=== PATIENT | female | born 1960 | race Two or more races ===

== ENCOUNTER → 2019-04-12 | Outpatient (REF) | payer BC | LOC: M SFHCWAGY 13:48 | PROVIDERS: ATTEND Family Medicine | DX: Z12.4 Encounter for screening for malignant neoplasm of cervix (principal) ==

== ENCOUNTER → 2019-04-12 | Outpatient (CLI) | payer BC ==
--- NOTE | 2019-04-18 15:52 | REPMRS ---
Patient History The patient states she has not had a clinical breast exam in over a year. Patient is postmenopausal. Family history of colorectal cancer at age 60 in father. No Hormone Replacement Therapy 3D TOMOSYNTHESIS WAS PERFORMED. [facility] lifetime risk for breast cancer is 8.7%. Digital Woman Screen Mammo: April 12, 2019 - Exam #: [id number] Bilateral CC and MLO view(s) were taken. Technologist: Karen Gandara, Technologist Prior study comparison: November 08, 2017, bilateral digital mammo screening bilat, performed at [facility]. FINDINGS: There are scattered fibroglandular densities. There has been no change in the appearance of the mammogram from the prior studies. There is a mild amount of residual fibroglandular tissue which is fairly symmetric. There is no interval development of dominant mass, architectural distortion, or clustered microcalcification suggestive of malignancy. Assessment: BI-RADS/ACR category 1 mammogram. Negative Mammogram. Recommendation Routine screening mammogram in 1 year (for women over age 40). This mammogram was interpreted with the aid of an FDA-approved computer-aided dectection system. Electronically Signed By: Luis Angel Hannah MD 04/18/19 1775
== END ==
LOC: M WHC 13:17
PROVIDERS: ATTEND Family Medicine
DX: Z12.31 Encounter for screening mammogram for malignant neoplasm of breast (principal); Z78.0 Asymptomatic menopausal state

== ENCOUNTER → 2019-04-22 | Outpatient (CLI) | payer BC ==
--- NOTE | 2019-04-22 11:31 | REP ---
Clinical: Left ovarian cyst. Technique: Transabdominal pelvic ultrasound followed by transvaginal examination for better evaluation of the endometrium and adnexa with color Doppler evaluation of the ovaries. Comparison: None. Findings: Bladder is normal and measures 11.1 x 7.1 x 9.4 cm. Normal anteverted uterus measures 6.7 x 2.5 x 4.5 cm. Endometrial complex measures 2.1 mm thickness. Right ovary is not visualized. Left ovary is normal in appearance and vascularity without torsion measuring 2.8 x 2.4 x 3.2 cm (RI 0.70) and includes 2.7 x 2.0 x 1.5 cm hypoechoic lesion suggesting cyst. Impression: 1. 2.7 cm hypoechoic lesion within the left ovary may represent complex/hemorrhagic cyst. Consider reevaluation in 4-6 weeks to evaluate for resolution. Electronically Signed by Simeon Nieto MD 04/22/2019 11:23 A
== END ==
LOC: M RAD 09:56
PROVIDERS: ATTEND Family Medicine
DX: N83.202 Unspecified ovarian cyst, left side (principal); N85.4 Malposition of uterus

== ENCOUNTER → 2020-05-26 | Outpatient (REF) | payer BC ==
[2020-05-26 15:21] LABS: HEMATOCRIT 46.7 % (36.0-47.0); HEMOGLOBIN 15.1 g/dl (12.0-15.5); MEAN CORPUSCULAR HGB CONC 32.3 g/dl (32.0-36.5); MEAN CORPUSCULAR VOLUME 83.5 fl (80.0-96.0); PLATELET COUNT, AUTOMATED 312 10^3/uL (150-450); RED BLOOD COUNT 5.59 10^6/uL (4.00-5.40); WHITE BLOOD COUNT 9.1 10^3/uL (4.0-10.0)
[2020-05-26 16:19] LABS: ALBUMIN 3.6 GM/DL (3.2-5.2); ALT/SGPT 44 U/L (12-78); BILIRUBIN,TOTAL 0.5 MG/DL (0.2-1.0); BLOOD UREA NITROGEN 11 MG/DL (7-18); CALCIUM LEVEL 9.2 MG/DL (8.8-10.2); CARBON DIOXIDE LEVEL 27 MEQ/L (21-32); CHLORIDE LEVEL 107 MEQ/L (98-107); CHOLESTEROL LEVEL 211 MG/DL (<200); CHOLESTEROL RISK RATIO 4.489 (<5); CREATININE FOR GFR 0.65 MG/DL (0.55-1.30); GLOMERULAR FILTRATION RATE > 60.0 (>45); GLUCOSE, FASTING 82 MG/DL (70-100); HDL CHOLESTEROL 47 MG/DL (>40); LDL CHOLESTEROL 113 MG/DL (<100); NON-HDL-C 164 MG/DL; SODIUM LEVEL 140 MEQ/L (136-145); TOTAL 25(OH) VITAMIN D 23.6 NG/ML (30.0-100.0); TOTAL PROTEIN 7.8 GM/DL (6.4-8.2); TRIGLYCERIDES LEVEL 254 MG/DL (<150)
[2020-05-26 16:25] LABS: MAU/CREAT RATIO 30.6 MCG/MG (0.0-30.0)
== END ==
LOC: M SFHCPLAZ 14:14
PROVIDERS: ATTEND Physician Assistant
DX: Z00.00 Encounter for general adult medical examination without abnormal findings (principal); I11.9 Hypertensive heart disease without heart failure; Z13.29 Encounter for screening for other suspected endocrine disorder; R73.01 Impaired fasting glucose; E78.2 Mixed hyperlipidemia; E55.9 Vitamin D deficiency, unspecified

== ENCOUNTER → 2020-08-31 | Outpatient (CLI) | payer BC ==
--- NOTE | 2020-08-31 11:51 | REPPI ---
INDICATION: M25.512 ACUTE PAIN OF LEFT SHOULDER COMPARISON: None. TECHNIQUE: Internal rotation, external rotation, and Y view. FINDINGS: Generalized osteopenia is appreciated. The acromioclavicular joint demonstrates mild cortical irregularity and subtle spurring. The glenohumeral joint demonstrates cortical irregularity to the humeral head and suspected broad-based spurring along the inferior margin of the calcified glenoid rim. Corticated loose body adjacent to the humeral tuberosity is also suspected. The subacromial space is normal. No acute fracture or dislocation. IMPRESSION: Osteopenia and moderate arthritic degenerative changes primarily involving the glenohumeral joint. <Electronically signed by Simeon Nieto > 08/31/20 1144
== END ==
LOC: M PLAIMG 10:47
PROVIDERS: ATTEND Physician Assistant
DX: M85.812 Other specified disorders of bone density and structure, left shoulder (principal); M19.012 Primary osteoarthritis, left shoulder

== ENCOUNTER → 2020-10-09 | Outpatient (CLI) | payer BC ==
--- NOTE | 2020-10-09 09:44 | REP ---
INDICATION: PAIN. COMPARISON: None. TECHNIQUE: Slurry view of the left shoulder. FINDINGS: Humeral head demonstrates age-related osteopenia and subtle cortical irregularity. There is no evidence for acute fracture or definite dislocation. IMPRESSION: Age-related osteopenia and degenerative changes. No definite acute dislocation. <Electronically signed by Simeon Nieto > 10/09/20 0920
== END ==
LOC: M SOG 08:42
PROVIDERS: ATTEND Orthopaedic Surgery Sports Medicine
DX: M19.012 Primary osteoarthritis, left shoulder (principal); M85.812 Other specified disorders of bone density and structure, left shoulder

== ENCOUNTER → 2020-10-12 | Outpatient (CLI) | payer BC ==
--- NOTE | 2020-10-13 10:02 | ECHO ---
DATE OF PROCEDURE: 10/12/2020 Age: 59 Gender: Female Height: 160 cm Weight: 85 kg REFERRING PHYSICIAN: Jada Cavazos PA-C. INDICATION: Hypertension. MEASUREMENTS: IVS 1.2 cm LV 3.1 cm LVPW 1.1 cm LA 2.8 cm Aorta 3.2 cm IVC 1.8 cm Mitral E wave velocity 81 cm/s Mitral A wave 114 cm/s E prime septal 7.6 cm/s E prime lateral 9.5 cm/s FINDINGS: Study is of acceptable technical quality, underlying sinus rhythm. Left ventricle is normal size, borderline left ventricular hypertrophy is noted. Overall hyperdynamic LV systolic function, I estimate LVEF 65% to 70%. No segmental wall motion abnormalities are noted. Right ventricle is also normal size and systolic function. Both atria appear normal. Aortic valve is mildly sclerotic, but has three cusps and preserved mobility. There are also mild degenerative abnormalities of the mitral valve with mitral annular calcifications, but mobility of leaflets is preserved. Tricuspid valve appears normal. Pulmonic valve was not visualized. No pericardial effusion is noted. Inferior vena cava is normal size and appropriately collapses with inspiration indicative of normal central venous pressure. Aortic root, aortic arch, and visualized segment of abdominal aorta all appear normal. Doppler interrogation reveals competent aortic valve. There is also competent mitral valve. Mild tricuspid insufficiency is noted. Calculated pulmonary artery pressure is approximately 30 mmHg corresponding to borderline pulmonary hypertension. Mitral inflow pattern and tissue Doppler imaging of the mitral annulus revealed grade 1 diastolic dysfunction. CONCLUSIONS: 1. Study is of good technical quality, underlying sinus rhythm. 2. Normal LV size with borderline LVH, hyperdynamic LV systolic function, estimated LVEF 65% to 70%. Grade 1 diastolic dysfunction. 3. Mild degenerative abnormalities of the mitral and aortic valves, but functionally no valvular abnormalities. 4. Likely normal central venous pressure and borderline pulmonary hypertension. COMMENT: Overall the study is consistent with minimal hypertensive heart disease. MTDD
== END ==
LOC: M CARPUL 11:20
PROVIDERS: ATTEND Physician Assistant
DX: I11.9 Hypertensive heart disease without heart failure (principal)

== ENCOUNTER → 2020-11-16 | Outpatient (CLI) | payer BC ==
--- NOTE | 2020-11-16 13:48 | REPMRS ---
Patient History The patient states she has not had a clinical breast exam in over a year. Family history of colorectal cancer at age 60 in father. No Hormone Replacement Therapy Patient states no breast complaints. Patient has signed the MRS history sheet. Digital Woman Screen Mammo: November 16, 2020 - Exam #: [id number] Bilateral CC and MLO view(s) were taken. Technologist: Krista Madrigal, Technologist Prior study comparison: April 12, 2019, bilateral digital woman screen mammo performed at [facility], [place]. November 08, 2017, bilateral digital mammo screening bilat, performed at [facility]. March 16, 2016, bilateral digital mammo screening bilat, performed at [facility]. FINDINGS: The breast tissue is almost entirely fat. The Volpara volumetric breast density category is: A. There has been no change in the appearance of the mammogram from the prior studies. There is no interval development of dominant mass, architectural distortion, or grouped microcalcification typical of malignancy. 3-D tomosynthesis shows no additional findings. Assessment: BI-RADS/ACR category 1 mammogram. Negative Mammogram. Recommendation Routine screening mammogram of both breasts in 1 year (for women over age 40). This patient's [facility] Lifetime Breast Cancer RIsk is estimated at 8.1 %. This mammogram was interpreted with the aid of an FDA-approved computer-aided dectection system. Electronically Signed By: Luis Angel Hannah MD 11/16/20 [id number]
== END ==
LOC: M WHC 11:33
PROVIDERS: ATTEND Physician Assistant
DX: Z12.31 Encounter for screening mammogram for malignant neoplasm of breast (principal); Z80.0 Family history of malignant neoplasm of digestive organs